=== PATIENT | female | born 1975 | race Caucasian/White ===

== ENCOUNTER 2023-05-10 09:06 | Outpatient (CLI) | payer OTHER, SELFPAY ==
[2023-05-19 22:01] VITALS: BMI 25.1
--- NOTE | 2023-05-19 22:01 | WPDSLEEPSTUD ---
Sleep Study Date of Study: 05/10/23 Ordering Provider: Blake Valenzuela MD Interpreting Physician: Shawanda Jose MD Sleep Study Type: Split Polysomnogram Height: 1.75 m Weight: 77.111 kg Body Mass Index: 25.1 Neck Circumference (inches): 14 [place]: 14 Reason for Sleep Study Hypersomnolence Sleep History Darleen Allen is a 47-year-old woman with poor sleep with snoring. She occasionally awakens from sleep short of breath. She rarely wakes at night with heartburn, belching or coughing.??She constantly snores, constantly snores loudly enough that others complain. She occasionally has trouble sleeping when she has a cold. She frequently wakes up gasping for breath during the night. She frequently has breathing problems at night. She occasionally sweats excessively at night. She rarely notices her heart pounding or beating irregularly during the night. She frequently falls asleep during the day. She occasionally falls asleep involuntarily, never falls asleep while driving. She never experiences loss of muscle tone with strong emotion. She never feels paralyzed on waking or falling asleep. She rarely experiences vivid dreams upon waking or falling asleep. She never feels afraid of going to sleep. She occasionally has nightmares. She rarely recalls her dreams. She rarely has thoughts racing through her mind. She occasionally feels sad or depressed. She occasionally feels anxiety. She rarely notices parts of her body jerk. She rarely kicks during the night. She occasionally feels crawling or aching feelings in her legs. She occasionally feels leg pain at night. She rarely has morning jaw pain, and occasionally grinds her teeth at night. She frequently feels bothered by pain during the day, is rarely awakened by pain during the night. She frequently wakes up feeling stiff in the morning, constantly wakes feeling sore or achy in the morning. She frequently awakens with pain in her neck, spine, or joints. She has fatigue, headaches, and she takes antacids regularly. Normal bedtime is between 8:00 p.m. and 9:00 p.m., falling asleep within 30 minutes. She wakes up 4-5 times during the night, sometimes goes to the bathroom or repositions herself, returns to sleep in just a few minutes. She wakes in the morning by 6:00 a.m.. The alarm goes off at 6:30 a.m.. Her weekend schedule is similar, bedtime is between 9:00 p.m. and 10:00 p.m., however she wakes later, sometime between 9:00 a.m. and 10:00 a.m.. She reports getting between 7 and 8 hours of sleep at night. She takes naps in the afternoon or evening. Sometimes a short nap may be refreshing. She is usually drowsy for 3 hours after waking. Habits:??Tobacco: Never smoker Caffeine: 1 cup of coffee in the morning. Alcohol: occasional glass of wine Recreational substances: none PMFSH Past Medical History Medical History Anxiety Contact dermatitis HTN (hypertension) Hypothyroidism Insomnia DELTA (obstructive sleep apnea) Rash Surgical History Surgical History H/O oophorectomy Family History Family History Mother Diabetes mellitus Hypertension Heart disease Social History Social History Smoking status: Never smoker Alcohol intake: current Substance use: never Lack of Transportation: No Lack of Food: Never True Current Housing: I Have Housing Concerned About Future Housing: No Difficulty Paying Gas/Electric Bills: No Difficulty Paying for Meds: No Currently Unemployed: No Difficulty w/ Childcare or Family Care: No Living arrangements: with family Occupation/Education: occupation Additional occupation/education comments: Teacher Gender identity (if verbalized by the patient): Female Sexual Orientation (if Verbalized by the Patient):
== END 2023-05-11 06:29 | disposition home or self-care (01) ==
LOC: ANHCSM 09:07
PROVIDERS: PCP Family Medicine; Visit Provider Family Medicine
DX: G47.00 Insomnia, unspecified (principal); G47.33 Obstructive sleep apnea (adult) (pediatric); I10 Essential (primary) hypertension; E03.9 Hypothyroidism, unspecified
CPT/HCPCS: 95811

== ENCOUNTER 2024-09-26 09:41 | Outpatient (CLI) | payer OTHER, SELFPAY ==
--- NOTE | ~2024-09-26 | XR_ITS ---
AP view of the pelvis and AP and lateral views of the bilateral hips Clinical history: Pain Findings: No acute fracture or dislocation is seen. Osseous alignment is anatomic. There is mild dege nerative change of the right hip joint. Left hip joint intact. Soft tissues are unremarkable. Impression: Mild degenerative change of the right hip joint. Reviewed, dictated and finalized at location . Impression: Mild degenerative change of the right hip joint.
== END 2024-09-26 09:42 | disposition home or self-care (01) ==
PROVIDERS: PCP Obstetrics & Gynecology; Visit Provider Family Medicine
DX: M16.11 Unilateral primary osteoarthritis, right hip (principal); G89.29 Other chronic pain
CPT/HCPCS: 73521

== ENCOUNTER 2024-12-31 11:15 | Outpatient (RCR) | payer OTHER, SELFPAY ==
--- NOTE | 2024-10-03 16:41 | PTOPEVAL1 ---
Assessment and note entered by Emmie Andrews, PT Evaluation Information Assessment Status Evaluation Diagnosis pain in right hip, other chronic pain ICD-10 Condition Codes (PT) Pain in right hip M25.551,Difficulty Walking R26.2 ,Abnormalities of gait and mobility R26.9,Weakness R53.1 Subjective Information Has been bothering her about the last year. Didn't do anything to cause the issue. But the pain is more in the groin area and to the back of the hip. Reports is now constant and feels that is always holding her hip. Would try to walk for exercise but has not been able to. 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 Impacting her daily life with work, taking care of her yard, fitness. Is having to ask her to do more. Getting into and out of the care is horrible especially getting out of the passenger side . Pt reports taking Aleve for her hip, has tried heat and ice and uses as she feels like is beneficial. Worries about her function, can she do things, could she keep up with everyone on a big trip, etc . PLOF: walking for fitness. Reported Pain Level Pain Score 7: Self Report Assessment PT Clinical Summary Pt presents with right hip pain, severely reduced passive ROM, weakness, gait deficit, and imaging shows mild degenerative changes to the hip joint . Presentation highly suggestive of arthritis of the hip joint. Discomfort and limitations are impacting pt's life and abilities including modifying her work routine, requiring increased help from spouse for home care, and limitation of social activities and fitness activities. Pt will benefit from physical therapy for aggressive hip joint mobilization and stretching in attempt to decrease pressure on the joints and decrease pain for improved function. Plan of Care Interventions Electrical Stimulation,Gait Training,Hot Pack/Cold Pack,Manual Therapy,Neuro Re-education,Patient/ Caregiver Education,Therapeutic Activities, Therapeutic Exercise,Self-Care/Home Management, Other PT Services Indicated Yes Treatment Frequency and 2x weekly x 10 visits Duration These treatments will address the objective and functional deficits as defined above. The patient will be advanced safely and appropriately in order for the patient to progress towards his/her prior level of function. Additional exercises will be introduced and as well as a comprehensive home exercise program upon discharge, if needed, ?to ensure carryover of functional gains achieved in the clinic. This treatment plan has been reviewed and agreement upon by the patient.
--- NOTE | 2024-10-03 16:42 | OPREHPOC ---
Outpatient Therapy Plan of Care This is a Multidisciplinary Plan of Care that may contain components documented by all disciplines (PT, OT, and ST.) PT Problem 1 PT Problem #1 Knowledge Deficit PT Goal 1 Goal / Goal Update Pt will be independent in HEP Pt will verbalize understanding of diagnosis and prognosis Target Visit 10 PT Problem 2 PT Problem #2 Pain PT Goal 1 Goal / Goal Update Pt will report lowest pain rating at 0/10 to show improvement in overall discomfort Target Visit 10 PT Goal 2 Goal / Goal Update Pt will report greatest pain level at 3/10 or less to improve ADLs and activities Target Visit 20 PT Problem 3 PT Problem #3 Impaired Range of Motion PT Goal 1 Goal / Goal Update Pt will demonstrate hip extension passive ROM of 10 degrees Target Visit 10 PT Goal 2 Goal / Goal Update Pt will demonstrate passive ROM abduction 25 degrees PT Problem 4 PT Problem #4 Impaired Strength PT Goal 1 Goal / Goal Update Pt will demonstrate equal strength RLE versus LLE Target Visit 10 PT Goal 2 Goal / Goal Update Pt will demonstrate strength 4/5 in all tested planes
--- NOTE | 2024-11-13 16:42 | PTOPPROG ---
Assessment and note entered by Emmie Andrews, PT Evaluation Information Assessment Status Progress Diagnosis pain in right hip, other chronic pain ICD-10 Condition Codes (PT) Pain in right hip M25.551,Difficulty Walking R26.2 ,Abnormalities of gait and mobility R26.9,Weakness R53.1 Subjective Information Pt reports feeling getting in and out of the car is still problematic but is improved. Feels like when started therapy everything was extremely painful Feels now for the most part unless is a flare up or a certain movement is doing better. Notes keeping moving but as long as not strenuous is helping. Walking barefoot at the pool is painful. Sitting to standing isn't as impossible and horrible as it was Self-perceived improvement 60-70% Assessment PT Clinical Summary Pt has attended therapy consistently for her right hip pain and gait abnormality. She is making great progress in her range, gait, and progressing with her strength and pain reduction as well. She reports feeling 60-70% improved overall Pt will benefit from continued therapy in order to address deficits and continue improving functional ability. Plan of Care Interventions Electrical Stimulation,Gait Training,Hot Pack/Cold Pack,Manual Therapy,Neuro Re-education,Patient/ Caregiver Education,Therapeutic Activities, Therapeutic Exercise,Self-Care/Home Management, Other PT Services Indicated Yes Treatment Frequency and 2x weekly x 10 visits Duration These treatments will address the objective and functional deficits as defined above. The patient will be advanced safely and appropriately in order for the patient to progress towards his/her prior level of function. Additional exercises will be introduced and as well as a comprehensive home exercise program upon discharge, if needed, ?to ensure carryover of functional gains achieved in the clinic. This treatment plan has been reviewed and agreement upon by the patient.
--- NOTE | 2024-12-11 09:10 | PCPTNOTE ---
Pt canceled her appointment in [facility] this morning prior to her appointment.
--- NOTE | 2024-12-19 15:13 | PTOPPROG ---
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 Was able to get up and down from chairs but was careful. Pt notes when she would get sore she would consciously tighten her glute wiht the walking instead of being bent forward. Was able to move around more than she thought and did ice when she got home. Pushing boxes with her foot was unable, but also could still accomplish her tasks in a different way. Pain was up to a 3/10. Getting into and out of the car is better, modifies a little wiht turning to the side but is able to do it without assist or requiring increased time. Still requiring Aleve in the evening. Is trying acupuncture on Tuesday [place] in the muscles around the hip, and a little in the groin. Has been more active and able to do activities Improvement ratin-80% Has not been able to return to recreational walking, but is scared to. Assessment PT Clinical Summary Pt has attended therapy consistently for her right hip pain. Presentation showing decreased joint mobility and capsular end-feels suggestive of osteoarthritis presentation. Throughout therapy patient ROM has greatly increased, gait has improved, and strength has increased as well. 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 Pt cont to have decreased ROM overall and decreased strength overall, has yet to plateau in her therapy. Would benefit from continued therapy while returning to high level of activity to monitor and mitigate possible flare up responses. Plan of Care Interventions Electrical Stimulation,Gait Training,Hot Pack/Cold Pack,Manual Therapy,Neuro Re-education,Patient/ Caregiver Education,Therapeutic Activities, Therapeutic Exercise,Self-Care/Home Management, Other PT Services Indicated Yes Treatment Frequency and 1-2 x weekly x 6 visits Duration These treatments will address the objective and functional deficits as defined above. The patient will be advanced safely and appropriately in order for the patient to progress towards his/her prior level of function. Additional exercises will be introduced and as well as a comprehensive home exercise program upon discharge, if needed, ?to ensure carryover of functional gains achieved in the clinic. This treatment plan has been reviewed and agreement upon by the patient.
== END 2025-01-07 09:59 | disposition home or self-care (01) ==
LOC: ANHHIPT 11:15
PROVIDERS: PCP Family Medicine; Visit Provider Family Medicine
DX: M25.551 Pain in right hip (principal); G89.29 Other chronic pain
CPT/HCPCS: 97014; 97110; 97112; 97116; 97140; 97161; 97750; G0283